=== PATIENT | female | born 1955 | race Caucasian/White ===

== ENCOUNTER → 2017-12-08 10:17 | Outpatient (CLI) | payer MEDICAID, SELFPAY ==
--- NOTE | 2017-12-08 | TISS_PTH ---
PATIENT: DIANE NINO LOC: [facility] U#:[id number] AGE/SX: 69/F ROOM: RE12/08/[address]: Dr. Laci Bernardo DO : 1955 BED: DIS: SPEC #: [id number] RECD: 12/08/17 10:06 STATUS: VIN AIRAM #: [id number] TERESE: 12/08/17 00:[address]: Laci Bernardo DEPT: SURGICAL PATHOLOGY RECD BY: Bishnu Marquez Tissues: Buttock, NOS Procedures: Surgery Specimen Level IV HEADER OPERATION: Not noted PRE-OP DIAGNOSIS: Inflamed seborrheic keratosis, L82.0 TISSUE SUBMITTED: Left buttock MICROSCOPIC DIAGNOSIS Left buttock lesion, biopsy: Inflamed pigmented verrucous keratosis with seborrheic keratosis-like features. See comment. SCARLET:rory 12/09/17 COMMENT The dermis shows numerous melanophages. The lesion is present focally at the inked deep margin of the specimen. Clinical correlation and appropriate follow up are necessary. MICROSCOPIC DESCRIPTION Slides are reviewed. GROSS DESCRIPTION Received is one container labeled with the patient's name and not further designated. The specimen consists of a piece of brownish-black skin measuring 3 x 2.5 cm and up to 0.5 cm in thickness. The specimen is inked, serially sectioned and submitted entirely in three cassettes. / SJ:rg 12/08/17 TC:5 CPT: 46874 ADDENDUM ADDENDUM ADDENDUM ADDENDUM ADDENDUM ADDENDUM ADDENDUM ADDENDUM ADDENDUM 12/16/2017 10:33 ADDENDUM 12/16/2017 10:33 ADDENDUM 12/16/2017 10:33 ADDENDUM 12/16/2017 10:33 ADDENDUM 12/16/2017 10:33 Buttock lesion, biopsy: After QC review by Dr. Fishman, the following feature is added to the lesion. The lesion is associated with severe atypia. SJ:rory 12/16/17 This case is discussed with Dr. Bernardo on 12/15/17.
== END ==
PROVIDERS: Family Provider Family Medicine; PCP Family Medicine; Referring Provider Family Medicine; Visit Provider Family Medicine
DX: L82.0 Inflamed seborrheic keratosis (principal)
CPT/HCPCS: 88305

== ENCOUNTER → 2019-01-26 12:12 | Outpatient (CLI) | payer MEDICAID, SELFPAY ==
[2019-01-26 11:35] VITALS: BMI 26.9
--- NOTE | 2019-01-26 12:14 | RAD_ITS ---
STUDY: X-RAY - LEFT FOOT CLINICAL: Female, 63 years old. Achilles tendinitis TECHNIQUE: 3 view(s) of the foot. COMPARISON: None. FINDINGS: There is an enthesophyte involving the posterior superior calcaneus at the site of insertion of the Achilles tendon. Normal visualized subtalar, talonavicular, calcaneocuboid, tarsal and tarsometatarsal articulations. Normal metatarsi. Normal metatarsophalangeal joint of the great toe. Normal tibial and fibular sesamoid bones. Normal interphalangeal joint of the great toe. Normal phalanges of the great toe. Normal second through fifth metatarsophalangeal joints. Normal interphalangeal joints and phalanges of the lesser toes. The soft tissue structures are unremarkable. There is no demonstrated fracture. RAD/Foot min 3 Views IMPRESSION: No acute fracture or dislocation. Calcified spur at the insertion of the Achilles tendon. Electronically Signed: Juan Luis Davila MD at 22:48 EST , Service support ,
== END ==
PROVIDERS: Family Provider Family Medicine; PCP Family Medicine; Referring Provider Family Medicine; Visit Provider Family Medicine
DX: M76.62 Achilles tendinitis, left leg (principal)
CPT/HCPCS: 73630

== ENCOUNTER 2019-04-21 09:30 | Outpatient (RCR) | payer MEDICAID, SELFPAY ==
[2019-01-26 11:35] VITALS: BMI 26.9
--- NOTE | 2019-03-28 07:30 | HP.PTEVAL_ITS ---
Patient's Visit Information DIANE NINO is a 63 year old F referred to Physical Therapy by Thee Fields DPM with a diagnosis of Achilles tendonitis, heel spur of L ankle/LE. Date of Evaluation: 03/23/19 Physical Therapist: Nick Henderson DPT - Visit Plan Frequency: 2x /Week Duration: 4 Weeks Plan: Start with US bharathi DN to L achilles tendon/GS complex. Add in G/S stretching both manually and standing (increase frequency x6-7 per day, decr eased load applied). Progress to eccentric stretching to increase load applied to achilles tendon. - Subjective Findings: Pt. is here today for her intiial evaluation with disgnosis of l achilies tendonitis and L heel spur. Pt. 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 Pt. reports increased pain with walking, and especially stairs. Pt. reports increased in AMs, it loosens up as day goes on, but if she is on her feet for more than a few hours. Pt. reports 2/10 pain currently. Pt. has been stretching at home ~1 per day with standing gastroc stretching, ankle ROM and manual calf stretching. Pt. reports this is helpful, but not totally relieving her symptoms. Pt. is hopeful to get back to all recreational and work activities without liimitations. - Pain L distal achillies Pain Intensity (Out of 10): 2 Pain Intensity Range: 1, 7 - Objective POSTURE: Pt. has good posture in stance, no signs of heel equinis. Pt. has normal wt. shifting between bilatearl LEs. PALPATION: Pt. has pain as distal insertion of achilles on LLE, Pt. has not G/S muscle belly pain. NEURO: normal throughout bilateral LEs. Pt. has normal sensation and normal DTR bilaterally. ROM: L ankle- PF 49deg, DF 8deg., INV- 18deg, EVR 6deg. Tightness noted with DF, mild increase in symptoms. Normal knee ROM bilaterally. MMT: 5/5 throughout bilateral ankles, 4+/5 bilateral knee strength, 4/5 bilateral hip strength throughout. Tenderness noted with PF testing. GAIT: Pt. ambulates with early heel off and reports of increased pain with preswing phase. Pt. reports increased pain with pushing off, including heel raise type movements. STAIRS: no increase in symptoms, but does have early heel off with descending wtih LLE loading phase, use of BHR. - Goals Goal 1:: LTG: pt. to be I with HEP. Goal Time Frame: 4-6 Weeks Goal 2:: STG: Pt. to have atleast 15deg of active ankle DF on L side. Goal Time Frame: 2-4 Weeks Goal 3:: LTG: pt. to ambulate unlimited distances without increase in symptoms allowing for incresed tolerance to work duties. Goal Time Frame: 4-6 Weeks Goal 4:: STG: Pt. to sleep throughout the night without increase in symptoms. Goal Time Frame: 2-4 Weeks Goal 5:: LTG: Pt. to negotiate 1 fligth of steps with 1 HR with reciprocal pattern without increase in symptoms. Goal Time Frame: 4-6 Weeks - Rehabilitation Potential Physical Therapy Diagnosis: Pt. has signs and symptoms consistent with Achilles tendonitis, heel spur of L ankle/LE. Pt. has marked ROM loss and pain with tension applied to distal achilles tendon. I would recommend that she increase her stretching of G/S complex, use of US/graston/dry to reduce symptoms and progress to eccentric loading applied to achilles tendon to increase tissue reformation allowing for increased tolerance with all loading during ADLs and gait. Rehabilitation Potential: Excellent - Anticipated Interventions Patient/Client Instruction: Educate patient on: Condition, Plan of Care, Risk Factors, Benefits of Fitness Program For the Purpose of:: To improve decision making, To facilitate caregiver knowledge, To improve self management, To prevent re-injury, To improve ability to perform tasks related to life management, To improve tolerance to ADL's Therapeutic Exercise to Include: Strength training, Power training, Endurance training, Balance training, Coordination, Postural training, Flexibilty training, Gait and locomotor training, Passive ROM, Active ROM For the Purpose of:: To decrease pain, To decrease swelling/inflammation, To increase ROM, To improve nutrient delivery to tissue, To increase oxygenation perfusion, To improve muscle performance and motor function, To improve ability to perform ADL's, To improve gait and locomotor functions, To improve health of tissue, To decrease soft tissue restriction, To increase flexibility/ROM Cryotherapy (ice pack, ice massage): Yes Thermo therapy (hot pack): Yes Ultrasound (thermal/non thermal): Yes For the Purpose of:: To decrease pain, To decrease swelling/inflammation, To increase ROM, To improve nutrient delivery to tissue, To increase oxygenation perfusion, To improve muscle performance and motor function, To improve ability to perform ADL's, To improve health of tissue, To decrease soft tissue restr iction, To increase flexibility/ROM Thank you for the opportunity to evaluate your patient. For Medicare and Medicare HMO plans, please review the plan of care and approve it. It will need to be FAXED BACK to us at [phone] for Medicare purposes. For Medicare only, by signing this I certify the plan of care. Please let me know if there are questions or concerns regarding this plan of care. Physician Signature: Date:
--- NOTE | 2019-04-21 10:36 | HP.PTDCSUM ---
HP - PT D/C Summary It has been my pleasure to treat DIANE NINO under orders from Thee Fields DPM, for the diagnosis of Achilles tendonitis, heel spur of L ankle/LE for a total of 9 visit(s). Discharge Date: Please see the following information for a summary of their discharge status. - Subjective Subjective: Pt. reports overall I am doing much better. I have some dull pain, but not that sharp pain. Pt. reports pain has been good at work. - Pain L distal achillies Pain Intensity (Out of 10): 0 - Overall Improvement % Improvement: 80 - Objective Objective/Function: L ankle ROM 16 deg of DF. Pt. reports no pain currently. Pt. is doing well at work. She does have some achiness after increased walking at work, but overall doing much better. Her gait pattern has improved and has good mechanics throughout. Pt. reports no pain with stairs this date. Pt. is pelased with porgress. I talked to her about continued stretching and eccentric strengthening. Pt. consents. Pt. will be DC from PT at this point in time. - Goals Goal 1:: LTG: pt. to be I with HEP. Goal Progress: Goal Met Goal 2:: STG: Pt. to have atleast 15deg of active ankle DF on L side. Goal Progress: Goal Met Goal 3:: LTG: pt. to ambulate unlimited distances without increase in symptoms allowing for incresed tolerance to work duties. Goal Progress: Goal Met Goal 4:: STG: Pt. to sleep throughout the night without increase in symptoms. Goal Progress: Goal Met Goal 5:: LTG: Pt. to negotiate 1 fligth of steps with 1 HR with reciprocal pattern without increase in symptoms. Goal Progress: Goal Met - Plan Plan: Pt. to be DC from PT at this point intime. - D/C Information If there are questions or concerns regarding this patient's physical therapy, please feel free to call me at [phone]. Thank you for the referral of this patient. Sincerely, Nick Henderson DPT
== END 2019-04-21 13:06 | disposition home or self-care (01) ==
LOC: PT 09:30
PROVIDERS: Family Provider Family Medicine; PCP Family Medicine; Referring Provider Podiatrist; Visit Provider Podiatrist
DX: M76.62 Achilles tendinitis, left leg (principal); M77.32 Calcaneal spur, left foot
CPT/HCPCS: 97035; 97110; 97140; 97161; 97164

== ENCOUNTER → 2019-11-16 15:28 | Outpatient (CLI) | payer MEDICAID, SELFPAY ==
[2019-11-16 15:04] VITALS: BMI 26.9
[2019-11-16 16:54] LABS: Absolute Neutrophil Count 4.8 X10^3/uL (2.0-7.7); Basophil# 0.06 X10^3/uL; Basophil% 0.7 % (0-1); Eosinophil# 0.19 X10^3/uL; Eosinophils% 2.1 % (0-5); Hematocrit 47.7 % (37-47); Hemoglobin 15.2 g/dL (12.0-15.0); Lymphocyte % 38.1 % (19-41); Mean Corp Hgb Conc 31.9 g/dL (32-36); Mean Corpuscular Hgb 29.7 pg (27.0-32.0); Mean Corpuscular Volume 93.2 fL (81-99); Mean Platelet Vol. 10.4 fl (6.2-12.0); Monocyte# 0.64 X10^3/uL; NRBC Flagged by Analyzer 0 % (0-5); Neutrophil # 4.78 X10^3/uL (2.7-7.7); Neutrophil % 51.9 % (47-70); Platelet Count 308 K/mm3 (150-450); RBC Distribution Width CV 13.6 % (11.6-14.6); RBC Distribution Width SD 47.2 fl (35.1-43.9); Red Blood Count 5.12 M/mm3 (4.2-5.4); White Blood Count 9.2 K/mm3 (4.4-11.0)
[2019-11-16 17:14] LABS: Anion Gap 4 (5-15); BUN 14 mg/dL (7-18); BUN/Creat Ratio 20.1 RATIO (10-20); Calcium,Total 9.8 mg/dL (8.5-10.1); Chloride 103 mmol/L (98-107); EST Glomerular Filtration Rate 91 mL/min (>60); Est Glom Filt Rate - Afr Amer 110 mL/min (>60); Glucose 103 mg/dL (74-106); Potassium 3.8 mmol/L (3.5-5.1); Sodium Level 140 mmol/L (136-145); Thyroid Stim Hormone (TSH) 0.69 uIU/mL (0.358-3.74)
== END ==
PROVIDERS: PCP Family Medicine; Referring Provider Family Medicine; Visit Provider Family Medicine
DX: R53.83 Other fatigue (principal)
CPT/HCPCS: 36415; 80048; 84443; 85025

== ENCOUNTER → 2020-08-02 15:30 | Outpatient (CLI) | payer MEDICAID, SELFPAY ==
[2020-07-18 14:02] VITALS: BMI 26.9
--- NOTE | 2020-08-02 15:32 | BI_ITS ---
MAMMOGRAPHY - BILATERAL SCREENING REASON FOR EXAM: Female, 65 years old. Routine annual screening examination. PERTINENT HISTORY: Non-contributory. TECHNIQUE: Digital bilateral breast tam (3D mammographic acquisition) in the CC and MLO projections. 2-D mediolateral oblique (MLO) and craniocaudad (CC) views of both breasts were obtained. CAD: Full Field Digital Mammography with Computer Added Detection was performed. COMPARISON: Comparison is made with prior study dated 09/04/2015 and 05/19/2012. FINDINGS: Breast Composition: The breasts are heterogeneously dense, which may obscure small masses. There are no dominant masses or suspicious calcifications. No other significant abnormalities are identified. There has been no significant change since the prior study. BI/SCRN MAMM (CAD)W/TAM BILAT IMPRESSION: Stable bilateral screening mammogram. Yearly follow-up mammogram recommended. (A) ASSESSMENT CATEGORY: BIRADS Category 1: Negative. A letter regarding these results will be sent to the patient by the facility within 30 days. Approximately 10% of breast cancers are not detected by mammography. A normal mammogram should not delay biopsy of a clinically suspicious abnormality. [id number] Electronically Signed: Zeferino Stone MD at 8:44 EDT , Service support ,
== END ==
PROVIDERS: PCP Family Medicine; Referring Provider Family Medicine; Visit Provider Family Medicine
DX: Z12.31 Encounter for screening mammogram for malignant neoplasm of breast (principal)
CPT/HCPCS: 77063; 77067

== ENCOUNTER → 2022-11-11 | Outpatient (CLI) | payer MEDICAID, SELFPAY ==
[2022-11-11 17:12] LABS: ALB/GLOB Ratio 0.9 RATIO (0.9-2.4); AST(SGOT) 20 U/L (15-37); Alanine Aminotransfer ALT/SGPT 19 U/L (13-56); Albumin, Serum 3.7 g/dL (3.2-5.0); Alkaline Phosphatase 85 U/L (45-117); Anion Gap 6 (5-15); BUN 10 mg/dL (7-18); BUN/Creat Ratio 14.2 RATIO (10-20); Calcium,Total 9.4 mg/dL (8.5-10.1); Chloride 102 mmol/L (98-107); EST Glomerular Filtration Rate 89 mL/min (>60); Est Glom Filt Rate - Afr Amer 108 mL/min (>60); Globulin 3.9 g/dL (2.2-4.2); Glucose 88 mg/dL (74-106); Potassium 3.9 mmol/L (3.5-5.1); Protein, Total 7.6 g/dL (6.4-8.2); Sodium Level 137 mmol/L (136-145)
== END | disposition home or self-care (01) ==
LOC: BIMLAB 15:15
PROVIDERS: PCP Family Medicine; Visit Provider Family Medicine
DX: I10 Essential (primary) hypertension (principal)
CPT/HCPCS: 36415; 80053

== ENCOUNTER → 2023-01-21 | Outpatient (CLI) | payer MEDICARE, MEDICAID, SELFPAY ==
--- NOTE | 2023-01-21 14:33 | BI_ITS ---
MAMMOGRAPHY - BILATERAL SCREENING REASON FOR EXAM: Female, 67 years old. Routine annual screening examination. PERTINENT HISTORY: Non-contributory. TECHNIQUE: Digital bilateral breast tam (3D mammographic acquisition) in the CC and MLO projections. 2-D mediolateral oblique (MLO) and craniocaudad (CC) views of both breasts were obtained. CAD: Full Field Digital Mammography with Computer Added Detection was performed. COMPARISON: Comparison is made with prior examination of August 02, 2020 and September 04, 2015. FINDINGS: Breast Composition: The breasts are heterogeneously dense, which may obscure small masses. There are no dominant masses or suspicious calcifications. No other significant abnormalities are identified. There has been no significant change since the prior study. BI/SCRN MAMM (CAD)W/TAM BILAT IMPRESSION: Stable bilateral screening mammogram. Yearly follow-up mammogram recommended. (A) ASSESSMENT CATEGORY: BIRADS Category 1: Negative. A letter regarding these results will be sent to the patient by the facility within 30 days. Approximately 10% of breast cancers are not detected by mammography. A normal mammogram should not delay biopsy of a clinically suspicious abnormality. [id number] Electronically Signed: Zeferino Stone MD at 15:20 EST ,
== END | disposition home or self-care (01) ==
PROVIDERS: PCP Family Medicine; Referring Provider Family Medicine; Visit Provider Family Medicine
DX: Z12.31 Encounter for screening mammogram for malignant neoplasm of breast (principal)
CPT/HCPCS: 77063; 77067

== ENCOUNTER → 2025-01-11 | Outpatient (CLI) | payer MEDICARE, SELFPAY ==
[2025-01-11 14:58] LABS: Hematocrit 41.7 % (37-47); Hemoglobin 13.1 g/dL (12.0-15.0); Immature Granulocytes Count 0.010 X10^3/uL (0.0-0.0); Mean Corp Hgb Conc 31.4 g/dL (32-36); Mean Corpuscular Volume 89.5 fL (81-99); Mean Platelet Vol. 11.3 fl (6.2-12.0); NRBC Flagged by Analyzer 0 % (0-5); Platelet Count 237 K/mm3 (150-450); RBC Distribution Width CV 13.2 % (11.6-14.6); RBC Distribution Width SD 43.2 fl (35.1-43.9); Red Blood Count 4.66 M/mm3 (4.2-5.4); White Blood Count 7.0 K/mm3 (4.4-11.0)
[2025-01-11 15:22] LABS: AST(SGOT) 27 U/L (<=31); Alanine Aminotransfer ALT/SGPT 16 U/L (<=34); Albumin, Serum 4.2 g/dL (3.4-4.8); Alkaline Phosphatase 64 U/L (35-104); Anion Gap 10 (5-15); BUN 15 mg/dL (4-19); BUN/Creat Ratio 19.7 RATIO (10-20); Calcium,Total 9.6 mg/dL (7.6-11.0); Carbon Dioxide 28.1 mmol/L (21.0-32.0); Chloride 104 mmol/L (98-108); Cholesterol 234 mg/dL (<=200); Globulin 3.1 g/dL (2.2-4.2); Glucose 84 mg/dL (70-99); Low Density Lipoprotein Calc. 156 mg/dL; Potassium 4.0 mmol/L (3.3-5.1); Triglycerides 140 mg/dL; Very Low Density Lipoprotein 28 mg/dL (5-40); cholesterol:hdl ratio screen 4.45
== END | disposition home or self-care (01) ==
LOC: MTLAB 11:46
PROVIDERS: PCP Family Medicine; Referring Provider Family Medicine; Visit Provider Family Medicine
DX: I10 Essential (primary) hypertension (principal)
CPT/HCPCS: 36415; 80053; 80061; 85025

== ENCOUNTER → 2025-01-31 | Outpatient (CLI) | payer MEDICARE, SELFPAY ==
--- NOTE | 2025-01-31 14:43 | BD_ITS ---
PROCEDURE: DEXA BONE DENSITY STUDY 01/31/2025 REASON FOR EXAM: OSTEOPOROSIS F, age 69 y/o . Patient is postmenopausal TECHNIQUE: Procedure Code: BDDBD Modality: DX Procedure: DEXA BONE DENSITY STUDY COMPARISON: None FINDINGS: BMD and T-SCORES Lumbar spine: 0.958 g/cm2, T-score -0.8 Levels: L1 through L4 Left femoral neck: 0.526 g/cm2, T-score -2.9 Left total hip: 0.638 g/cm2, T-score -2.5 Right femoral neck: 0.569 g/cm2, T-score -2.5 Right total hip: 0.696 g/cm2, T-score -2.0 The World Health Organization has defined the following categories based on bone density: Normal bone density: T-score equal to or greater than -1.0 Osteopenia: T-score between -1.0 and -2.5 Osteoporosis: T-score equal to or less than -2.5 FRAX (or Comparable) Fracture Risk Assessment: 10 Year Probability of Fracture: Major Osteoporotic Fracture: 39% Hip Fracture: 10% (Note: FRAX is not to be reported in setting of normal range bone density, osteoporosis on DEXA, known history of osteoporosis, prior osteoporotic hip or vertebral fracture, or for any patient undergoing pharmacological treatment for bone loss.) The National Osteoporosis Foundation (NOF) recommends pharmacological treatment for patients with a FRAX 10-year risk of 3% or higher for a hip fracture, or 20% or higher for a major osteoporotic fracture, to prevent osteoporosis and reduce fracture risk. The patient does meet the pharmacological treatment recommendations for prevention of osteoporosis. BD/Dexa Bone Density Study IMPRESSION: OSTEOPOROSIS. Recommend follow-up as clinically warranted. Reading Location: [id number]
--- OUTSIDE RECORDS SUMMARY | 2025-01-31 15:01 | XMS RPT_ITS | CCD ---
Author Organization [facility] Care Team Providers Care Manager Communication Name Role Phone Dr. Laci Bernardo Primary Care Provider Dr. Laci Bernardo Attending Provider [phone] Dr. Laci Bernardo Referring Provider [phone] Dr. Laci Bernardo DO Primary Care Physician Dr. Laci Bernardo DO Referring Provider [phone] NURSE, BIM Attending Physician Unavailable Laci Bernardo Referring Unavailable Laci Bernardo Primary Care Unavailable NURSE, BIM Attending Unavailable Laci Bernardo Attending Unavailable Az, Laci R Referring Unavailable Brown, Laci R Primary Care Unavailable Brown, Laci R Referring Unavailable Az, Laci R Primary Care Unavailable Az, Laci R Attending Unavailable Az, Laci R Referring Unavailable Az, Laci R Primary Care Unavailable Laci Bernardo Attending Unavailable Medications Current Medications Medication Drug Class(es) Dates Sig (Normalized) Sig (Original) ascorbic acid 500 mg oral capsule (5 sources) Vitamin C Start: 01-07-2023 take 1 mg by mouth once daily Start: 01-07-2023 take 1 mg by mouth once daily Ascorbic Acid (Vitamin C) Active MG PO DAILY January 06, 2023 11:00pm Start: 12-28-2018 End: 12-30-2018 take 1 mg by mouth once daily Ascorbic Acid (Vitamin C ) 500 mg capsule Discontinued mg PO DAILY 0 December 28, 2018 12:00am December 30, 2018 2:57pm Start: 12-28-2018 End: 12-30-2018 take 1 mg by mouth once daily Ascorbic Acid (Vitamin C ) Discontinued MG PO DAILY December 27, 2018 11:00pm December 30, 2018 1:57pm calcium carbonate 1500 mg oral tablet (2 sources) Start: 01-07-2023 take 1 tablet by mouth once daily cetirizine hydrochloride 10 mg oral capsule (3 sources) Histamine-1 Receptor Antagonist Start: 11-03-2017 take 1 capsule by mouth once daily ibuprofen 600 mg oral tablet (6 sources) Nonsteroidal Anti-inflammatory Drug Start: 12-28-2018 take 1 tablet by mouth three times daily at mealtime for pain Start: 12-28-2018 End: 12-30-2018 take 1 tablet by mouth every six hours Ibuprofen 200 mg tablet Discontinued 200 mg PO EVERY 6 HOURS December 28, 2018 12:00am December 30, 2018 2:57pm lysine 500 mg oral tablet (5 sources) Start: 01-07-2023 take 1 tablet by mouth once da phil Start: 12-28-2018 End: 12-30-2018 take 1 tablet by mouth once daily Lysine (L-Lysine) 500 mg tablet Discontinued 500 mg PO DAILY December 28, 2018 12:00am December 30, 2018 2:57pm Multivitamin preparation (3 sources) Start: 01-07-2023 take 1 tablet by mouth once daily Multivitamin Active 1 TABLET PO DAILY January 06, 2023 11:00pm Start: 08-26-2017 End: 12-30-2018 take 1 tablet by mouth once daily in the morning Multivitamin Discontinued 1 TABLET PO EVERY MORNING August 25, 2017 11:00pm December 30, 2018 1:57pm Start: 08-26-2017 End: 12-30-2018 take 1 tablet by mouth once daily in the morning Multivitamin Discontinued 1 TABLET PO EVERY MORNING August 26, 2017 12:00am December 30, 2018 2:57pm Multivitamin tablet (2 sources) Start: 01-07-2023 Start: 08-26-2017 End: 12-30-2018 Multivitamin tablet Disconti nued 1 {tbl} PO EVERY MORNING August 26, 2017 12:00am December 30, 2018 2:57pm varenicline 1 mg oral tablet (15 sources) Partial Cholinergic Nicotinic Agonist Start: 12-22-2022 take 1 tablet by mouth twice daily Start: 11-11-2022 take 1 tablet by mouth once Start: 07-18-2020 End: 04-01-2022 take 1 tablet by mouth once Varenicline Tartrate (Zimmerman tix Starting Month Box) 0.5 mg (11)- 1 mg (42) tablets,dose pack Discontinued 0 PO per package directions 53 0 July 18, 2020 12:00am April 01, 2022 12:21pm PO PER PKG DIR Start: 01-06-2018 End: 12-28-2018 take 1 tablet by mouth twice daily Varenicline Tartrate (Chantix) 1 mg tablet Discontinued 1 mg PO TWICE A DAY 56 3 May 05, 2018 3:06pm December 28, 2018 3:02pm Start: 11-03-2017 End: 01-06-2018 take 1 tablet by mouth once Varenicline Tartrate (Zimmerman tix Starting Month Box) 0.5 mg (11)- 1 mg (42) tablets,dose pack Discontinued 0 PO per package directions 53 November 03, 2017 12:00am January 06, 2018 2:12pm PO PER PKG DIR Varenicline (Chantix Starting Month Box) 0.5 mg (11)- 1 mg (42) tablets,dose pack (2 sources) Start: 11-11-2022 take 1 tablet by mouth once Varenicline (Chantix Starting Box) 0.5 mg (11)- 1 mg (42) tablets,dose pack Active 0 PO per package directions November 10, 2022 11:00pm PO PER PKG DIR Start: 11-11-2022 take 1 tablet by mouth once Va renicline (Chantix Starting Box) 0.5 mg (11)- 1 mg (42) tablets,dose pack Active 0 PO per package directions November 11, 2022 12:00am PO PER PKG DIR Completed/Discontinued Medications Medication Drug Class(es) Dates Sig (Normalized) Sig (Original) azithromycin 250 mg oral tablet (6 sources) Macrolide Antimicrobial Start: 12-30-2018 End: 01-26-2019 take 2-5 tablets by mouth once daily Azithromycin 250 mg tablet Discontinued 0 PO .COMPLEX 6 0 December 30, 2018 12:00am January 26, 2019 12:33pm take 500 mg today (day 1), then 250 mg for 4 days (days 2-5) PO Start: 12-30-2018 End: 01-26-2019 Azithromycin Discontinued 0 PO .COMPLEX 6 December 29, 2018 11:00pm January 26, 2019 11:33am take 500 mg today (day 1), then 250 mg for 4 days (days 2-5) PO Start: 08-26-2017 End: 11-03-2017 Azithromycin 250 mg tablet D iscontinued 0 PO .COMPLEX 6 0 August 26, 2017 12:00am November 03, 2017 9:31am Take two tablets by mouth on day one then one tablet by mouth on days 2-5 buPROPion hydrochloride 75 mg oral tablet (3 sources) Aminoketone Start: 12-10-2020 End: 03-18-2021 Bupropion Hcl 75 mg tablet Discontinued 75 mg PO THREE TIMES A DAY 90 1 December 10, 2020 12:00am March 18, 2021 1:59pm administer 6 hours apart Calcium Carbonate / vitamin D3 (3 sources) Start: 12-28-2018 End: 12-30-2018 calcium carbonate-vitamin D3 (Calcium 600 with Vitamin D3) Discontinued PO DAILY December 27, 2018 11:00pm December 30, 2018 1:57pm Start: 12-28-2018 End: 12-30-2018 calcium carbonate-vitamin D3 (Calcium 600 with Vitamin D3) Discontinued PO DAILY December 28, 2018 12:00am December 30, 2018 2:57pm 12 hr dextromethorphan hydrobromide 60 mg / guaiFENesin 1200 mg extended release oral tablet (3 sources) Uncompetitive L-vhuerz-G-aspartate Receptor Antagonist, Sigma-1 Agonist Start: 08-26-2017 End: 11-03-2017 take 60-1200 mg by mouth every twelve hours Dextromethorphan-Guaifenesin (Mucinex Dm) 60-1,200 mg tablet extended release 12 hr Discontinued 1 {tbl} PO Q12H 14 0 August 26, 2017 12:00am November 03, 2017 9:32am fluticasone propionate 0.05 mg/actuat metered dose nasal spray (6 sources) Corticosteroid Start: 12-28-2018 End: 07-18-2020 take 50 ug nasal route once daily Fluticasone Propionate (Flonase Allergy Relief) 50 mcg/actuation spray,suspension Discontinued 2 NMA INTRANASAL DAILY 15.8 1 December 28, 2018 12:00am July 18, 2020 2:02pm administer into each nostril Start: 12-28-2018 End: 07-18-2020 take 1 spray(s) nasal route once daily Fluticasone Propionate (Flonase Allergy Relief) 50 mcg/actuation spray,suspension Discontinued 2 SPRAY INTRANASAL DAILY 15.8 December 27, 2018 11:00pm July 18, 2020 1:02pm administer into each nostril Start: 08-26-2017 End: 11-03-2017 take 50 ug nasal route once daily Fluticasone Propionate (Flonase Allergy Relief) 50 mcg/actuation spray,suspension Discontinued 2 NMA INTRANASAL daily 9.9 1 August 26, 2017 12:00am November 03, 2017 9:32am administer into each nostril Start: 08-26-2017 End: 11-03-2017 take 1 spray(s) nasal route once daily Fluticasone Propionate (Flonase Allergy Relief) 50 mcg/actuation spray,suspension Discontinued 2 SPRAY INTRANASAL daily 9.9 August 25, 2017 11:00pm November 03, 2017 8:32am administer into each nostril lisinopril 5 mg oral tablet (5 sources) Angiotensin Converting Enzyme Inhibitor Start: 12-09-2022 End: 01-07-2023 take 1 tablet by mouth once daily Lisinopril 5 mg tablet Discontinued 5 mg PO DAILY 30 December 09, 2022 5:01pm January 07, 2023 1:24pm Start: 11-11-2022 End: 12-09-2022 take 1 tablet by mouth once daily Lisinopril 20 mg tablet Discontinued 20 mg PO DAILY 90 November 11, 2022 12:00am December 09, 2022 5:01pm methylPREDNISolone 4 mg oral tablet (3 sources) Corticosteroid Start: 12-30-2018 End: 01-04-2019 take 1 tablet by mouth once Methylprednisolone (Medrol (Balta)) 4 mg tablets,dose pack Discontinued 4 mg PO per package directions 21 5 0 December 30, 2018 12:00am January 03, 2019 12:00am January 04, 2019 12:07am Acute bronchitis, unspecified potassium gluconate 2.5 meq oral tablet (3 sources) Start: 12-28-2018 End: 12-30-2018 take 2.5 mEq by mouth once daily Potassium 99 mg tablet Discontinued 2.5 meq PO DAILY December 28, 2018 12:00am December 30, 2018 2:57pm Start: 12-28-2018 End: 12-30-2018 take 2.5 mEq by mouth once daily Potassium Discontinued 2.5 MEQ PO DAILY December 27, 2018 11:00pm December 30, 2018 1:57pm Problems Problem Classification Problem Date Documented Da te Episodic/Chronic Acute bronchitis (3 sources) Acute bronchitis; Translations: [Acute bronchitis, unspecified] 12-30-2018 Episodic Administrative/social admission (6 sources) Patient encounter status; Translations: [Tobacco abuse counseling] 01-06-2018 Episodic Esophageal disorders (1 source) Gastro-esophageal reflux disease without esophagitis; Translations: [Gastro-esophageal reflux disease without esophagitis] Onset: 01-10-2025 Chronic Essential hypertension (7 sources) Essential hypertension; Translations: [Essential (primary) hypertension] Onset: 01-10-2025 11-11-2022 Chronic Immunizations and screening for infectious disease (1 source) Encounter for immunization; Translations: [Encounter for immunization] Onset: 12-13-2024 Episodic Other connective tissue disease (3 sources) Ganglion cyst of left dorsal wrist; Translations: [Ganglion, left wrist] 11-16-2019 Episodic Other connective tissue disease (2 sources) Achilles tendinitis; Translations: [Achilles tendinitis, left leg] 01-26-2019 Episodic Other connective tissue disease (1 source) Left achilles tendonitis; Translations: [Achilles tendinitis, left leg] 01-26-2019 Episodic Other eye disorders (2 sources) Vitreous floaters; Translations: [Other vitreous opacities, right eye] 12-07-2017 Chronic Other eye disorders (1 source) Vitreous floaters of right eye; Translations: [Other vitreous opacities, right eye] 12-07-2017 Chronic Other screening for suspected conditions (not mental disorders or infectious disease) (1 source) Encounter for screening mammogram for malignant neoplasm of breast; Translations: [Encounter for screening mammogram for malignant neoplasm of breast] Onset: 01-11-2025 Episodic Other skin disorders (3 sources) Keratosis; Translations: [Other seborrheic keratosis] 01-06-2018 Episodic Residual codes; unclassified (1 source) Asymptomatic menopausal state; Translations: [Asymptomatic menopausal state] Onset: 01-11-2025 Episodic Spondylosis; intervertebral disc disorders; other back problems (1 source) Chronic low back pain; Translations: [Chronic low back pain] 09-08-2023 Episodic Results Test Name Value Interpretation Reference Range Facility CBC W/Diff, Automatedon 11-0 Absolute Lymph 2.61 X10 3/uL Normal 0.83-4.51 [facility] Comment on above: Performed By: #### L 500.4100, L100.0100, L500.4050 #### [facility] [address] [place], [address] Absolute Neut 3.8 X10 3/uL Normal 2.0-7.7 [facility] Comment on above: Performed By: #### L 500.4100, L100.0100, L500.4050 #### [facility] [address] [place], [address] Basophils/100 WBC (Bld) 1.1 % High 0-1 [facility] Comment on above: Performed By: #### L 500.4100, L100.0100, L500.4050 #### [facility] [address] [place], [address] Eosinophils/100 WBC (Bld) 1.8 % Normal 0-5 [facility] Comment on above: Performed By: #### L 500.4100, L100.0100, L500.4050 #### [facility] [address] [place], [address] Erythrocyte distribution width (RBC) [Ratio] 13.2 % Normal 11.6-14.6 [facility] Comment on above: Performed By: #### L 500.4100, L100.0100, L500.4050 #### [facility] [address] [place], [address] Hematocrit (Bld) [Volume fraction] 41.7 % Normal 37-47 [facility] Comment on above: Performed By: #### L 500.4100, L100.0100, L500.4050 #### [facility] [address] [place], [address] Hemoglobin (Bld) [Mass/Vol] 13.1 g/dL Normal 12.0-15.0 [facility] Comment on above: Performed By: #### L 500.4100, L100.0100, L500.4050 #### [facility] [address] [place], [address] IG% 0.100 Normal 0.0-0.9 [facility] Comment on above: Result Comment: IG% - Immature Granulocytes (promyelocytes, myelocytes and metamyelocytes) > 1% indicates that a LEFT SHIFT is Present. Performed By: #### L 500.4100, L100.0100, L500.4050 #### [facility] [address] [place], [address] Lymphocytes/100 WBC (Bld) 37.1 % Normal 19-41 [facility] Comment on above: Performed By: #### L 500.4100, L100.0100, L500.4050 #### [facility] [address] [place], [address] MCH (RBC) [Entitic mass] 28.1 pg Normal 27.0-32.0 [facility] Comment on above: Performed By: #### L 500.4100, L100.0100, L500.4050 #### [facility] [address] [place], [address] MCHC (RBC) [Mass/Vol] 31.4 g/dL Low 32-36 [facility] Comment on above: Performed By: #### L 500.4100, L100.0100, L500.4050 #### [facility] [address] [place], [address] MCV (RBC) [Entitic vol] 89.5 fL Normal 81-99 [facility] Comment on above: Performed By: #### L 500.4100, L100.0100, L500.4050 #### [facility] [address] [place], [address] Monocytes/100 WBC (Bld) 5.7 % Normal 0-10 [facility] Comment on above: Performed By: #### L 500.4100, L100.0100, L500.4050 #### [facility] [address] [place], [address] Neutrophils/100 WBC (Bld) 54.2 % Normal 47-70 [facility] Comment on above: Performed By: #### L 500.4100, L100.0100, L500.4050 #### [facility] [address] [place], [address] Nucleated RBC (Bld) [#/Vol] 0 10*3/uL Normal 0-5 [facility] Comment on above: Performed By: #### L 500.4100, L100.0100, L500.4050 #### [facility] [address] [place], [address] Platelet mean volume (Bld) [Entitic vol] 11.3 fL Normal 6.2-12.0 [facility] Comment on above: Performed By: #### L 500.4100, L100.0100, L500.4050 #### [facility] [address] [place], [address] Platelets (Bld) [#/Vol] 237 10*3/uL Normal 150-450 [facility] Comment on above: Performed By: #### L 500.4100, L100.0100, L500.4050 #### [facility] [address] [place], [address] RBC (Bld) [#/Vol] 4.66 10*6/uL Normal 4.2-5.4 [facility] Comment on above: Performed By: #### L 500.4100, L100.0100, L500.4050 #### [facility] [address] [place], [address] RDW SD 43.2 fl Normal 35.1-43.9 [facility] Comment on above: Performed By: #### L 500.4100, L100.0100, L500.4050 #### [facility] [address] [place], [address] WBC (Bld) [#/Vol] 7.0 10*3/uL Normal 4.4-11.0 [facility] Comment on above: Performed By: #### L 500.4100, L100.0100, L500.4050 #### [facility] [address] [place], [address] Comprehensive Metabolic Prof ilon 01-11-2025 Albumin [Mass/Vol] 4.2 g/dL Normal 3.4-4.8 [facility] Comment on above: Performed By: #### L 500.4100, L100.0100, L500.4050 #### [facility] [address] [place], [address] Albumin/Globulin [Mass ratio] 1.4 {ratio} Normal 0.9-2.4 [facility] Comment on above: Performed By: #### L 500.4100, L100.0100, L500.4050 #### [facility] [address] [place], [address] ALK PHOS 64 U/L Normal 35-104 [facility] Comment on above: Performed By: #### L 500.4100, L100.0100, L500.4050 #### [facility] [address] [place], [address] ALT [Catalytic activity/Vol] 16 U/L Normal <=34 [facility] Comment on above: Performed By: #### L 500.4100, L100.0100, L500.4050 #### [facility] [address] [place], [address] AST [Catalytic activity/Vol] 27 U/L Normal <=31 [facility] Comment on above: Performed By: #### L 500.4100, L100.0100, L500.4050 #### [facility] [address] [place], [address] Bilirubin [Mass/Vol] 0.26 mg/dL Normal 0.00-1.30 [facility] Comment on above: Performed By: #### L 500.4100, L100.0100, L500.4050 #### [facility] [address] [place], [address] BUN/CRE 19.7 RATIO Normal 10-20 [facility] Comment on above: Performed By: #### L 500.4100, L100.0100, L500.4050 #### [facility] [address] [place], [address] Calcium [Mass/Vol] 9.6 mg/dL Normal 7.6-11.0 [facility] Comment on above: Performed By: #### L 500.4100, L100.0100, L500.4050 #### [facility] [address] [place], [address] Chloride [Moles/Vol] 104 mmol/L Normal 98-108 [facility] Comment on above: Performed By: #### L 500.4100, L100.0100, L500.4050 #### [facility] [address] [place], [address] CO2 [Moles/Vol] 28.1 mmol/L Normal 21.0-32.0 [facility] Comment on above: Performed By: #### L 500.4100, L100.0100, L500.4050 #### [facility] [address] [place], [address] Creatinine [Mass/Vol] 0.76 mg/dL Normal 0.70-1.20 [facility] Comment on above: Performed By: #### L 500.4100, L100.0100, L500.4050 #### [facility] [address] [place], [address] GAP 10 Normal 5-15 [facility] Comment on above: Performed By: #### L 500.4100, L100.0100, L500.4050 #### [facility] [address] [place], [address] GFR/1.73 sq M.predicted among non-blacks MDRD (S/P/Bld) [Vol rate/Area] 86 mL/min/{1.73_m2} Normal >60 [facility] Comment on above: Result Comment: mL/m in/1.73m2 CKD-EPI Creatinine Equation (2020) Performed By: #### L 500.4100, L100.0100, L500.4050 #### [facility] [address] [place], [address] Globulin (S) [Mass/Vol] 3.1 g/dL Normal 2.2-4.2 [facility] Comment on above: Performed By: #### L 500.4100, L100.0100, L500.4050 #### [facility] [address] [place], [address] Glucose [Mass/Vol] 84 mg/dL Normal 70-99 [facility] Comment on above: Performed By: #### L 500.4100, L100.0100, L500.4050 #### [facility] [address] [place], [address] Potassium [Moles/Vol] 4.0 mmol/L Normal 3.3-5.1 [facility] Comment on above: Performed By: #### L 500.4100, L100.0100, L500.4050 #### [facility] [address] [place], [address] Sodium [Moles/Vol] 142 mmol/L Normal 133-145 [facility] Comment on above: Performed By: #### L 500.4100, L100.0100, L500.4050 #### [facility] [address] [place], [address] T PROT 7.2 g/dL Normal 5.9-8.4 [facility] Comment on above: Performed By: #### L 500.4100, L100.0100, L500.4050 #### [facility] [address] [place], [address] Urea nitrogen [Mass/Vol] 15 mg/dL Normal 4-19 [facility] Comment on above: Performed By: #### L 500.4100, L100.0100, L500.4050 #### [facility] [address] [place], [address] Lipid Profileon 01-11-2025 CHOL:HDL 4.45 Normal [facility] Comment on above: Performed By: #### L 500.4100, L100.0100, L500.4050 #### [facility] [address] [place], [address] Cholesterol [Mass/Vol] 234 mg/dL High <=200 [facility] Comment on above: Result Comment: Chol esterol level, Desirable <200 mg/dL Borderline high cholesterol 200-239 mg/dL High cholesterol >=240 mg/dL Recommendations of the NCEP Adult Treatment Panel for the following risk-cutoff thresholds for the [place] population. Performed By: #### L 500.4100, L100.0100, L500.4050 #### [facility] [address] [place], [address] Cholesterol in HDL [Mass/Vol] 53 mg/dL Normal [facility] Comment on above: Result Comment: [place] onal Cholesterol Education Program (NCEP) guidelines: <40 mg/dL: Low HDL-cholesterol (major risk factor for CHD) >= 60 mg/dL: High HDL-cholesterol (negative risk factor for CHD) HDL-cholesterol is affected by a number of factors, e.g. smoking, exercise, hormones, sex and age. Performed By: #### L 500.4100, L100.0100, L500.4050 #### [facility] [address] [place], [address] Cholesterol in LDL [Mass/Vol] 156 mg/dL Normal [facility] Comment on above: Result Comment: Bord wzdoxw=615-659 mg/dL Higher Lkfk=584 mg/dL or greater Jeffrey Equation 2020 for LDL-C Performed By: #### L 500.4100, L100.0100, L500.4050 #### [facility] [address] [place], [address] Cholesterol in VLDL [Mass/Vol] 28 mg/dL Normal 5-40 [facility] Comment on above: Performed By: #### L 500.4100, L100.0100, L500.4050 #### [facility] [address] [place], [address] Triglyceride [Mass/Vol] 140 mg/dL Normal [facility] Comment on above: Result Comment: The drugs N-Acetylcysteine and Metamizole may falsely depress this assay. Normal range: <150 mg/dL Borderline High: 150-199 mg/dL High: 200-499 mg/dL Very High: >500 mg/dL Performed By: #### L 500.4100, L100.0100, L500.4050 #### [facility] [address] [place], [address] Internal Medicine Office Vis shawanda 01-10-2025 Internal Medicine Office Visit [facility] Internal Medicine [address] [place] [address] [place] [address] OFFICE VISIT Date of Service: 01/10/25 MR#: [id number] Acct: [id number] Name: RAJESH NINO ET Rep #: [id number] : 1955 Provider: Dr. Laci khan DO Age/Sex: 69/F [place] [facility] Status: Signed Intake Vital Signs 09/08/23 15:26 01/10/25 12:51 Height 5 ft 4 in 5 ft 4 in Weight: 169 lb BMI 29.0 BP 144/82 H Blood Pressure Location Lt brachial Position Sitting Respiration 18 Pulse 105 H Pulse Source Monitor Temp 97.8 F Temp Source Temporal Pulse Oximetry (%) 90 Oxygen Delivery Method room air Intake Visit Reasons: WELLNESS Chief Complaint: Check up Managing Consultant Clinical Professor Required: No Accompanied by: Self Is patient in pain?: No Allergies No Known Allergies Allergy (Verified 01/10/25 12:54) Medications ???Medication ???Instructions ???Recorded ???Confirmed ???Type ibuprofen 600 mg tablet 600 mg PO TID PRN pain #30 tabs 01/10/25 Rx ascorbic acid (vitamin C) 500 mg mg PO DAILY 01/07/23 01/10/25 Hist ory capsule calcium carbonate 600 mg PO DAILY 01/07/23 01/10/25 History lysine 500 mg tablet 500 mg PO DAILY 01/07/23 01/10/25 History multivitamin 1 tab PO DAILY 01/07/23 01/10/25 H istory cetirizine 10 mg capsule (Zyrtec) 10 mg PO DAILY PRN 01/10/2501/10 History pantoprazole 40 mg tablet,delayed 40 mg PO QDAY #30 tabs 01/10/25 1 03/12/24 Rx release (Protonix) Have you fallen in the past year?: No Nurse's Note: pt reports concerns about belching that occurs daily. she feels this is increasing. [facility] Medical History (Updated 01/10/25 @ 13:[address] Laci Bernardo, ) SOB (shortness of breath) Vitreous floaters of right eye Surgical History History of detached retina repair History of right cataract surgery History of tonsillectomy Family History Mother Hypertension Heart disease Hiatal hernia Father Myocardial infarction Grandmother Diabetes Brother Diabetes Brother Multiple sclerosis Other Cancer Social History Smoking Status: Former smoker how long ago did patient quit smokin alcohol intake: current alcohol intake frequency: holidays/special occasions only substance use type: does not use what type of physical activity do you participate in: none HPI HPI Chief Complaint: Check up Details: DIANE NINO, is a 69 F who presents to the office today for gas belching and heart burn. 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 It does not seem to make any difference what food she eats she just has some heartburn and belching. Some days are much worse than others. She has no trouble with diarrhea constipation or change in the consistency of her stools. She has been contacted by her insurance company who would like her to have a bone density test and I think that is appropriate at her age. She has not had any routine blood work screening, and she has a strong family history of diabetes. ROS Const Constitutional: No body ache, chills, excessive sweating, fatigue, fever(s), frequent falls, headache(s), snoring, weight change, sleep problems, abnormal sleep pattern or change in appetite Eyes Eyes: No blurry vision, change in vision, eye pain or Light sensitivity ENT ENT: No abnormal hearing, ear or mastoid pain, tinnitus, nasal congestion, headache(s), neck pain or sore throat Resp Respiratory: No cough, shortness of breath, snoring or wheezing Cardio Cardiology: No chest pain at rest, chest pain with exertion, excessive sweating, shortness of breath, dyspnea on exertion, lightheadedness, orthopnea or palpitations Gastro GI: No abdominal pain, change in bowel habits, constipation, cramping, diarrhea, nausea/dyspepsia or vomiting Genitourinary-Fema le: No burning urination, painful urination, urinary incontinence, urinary frequency, abnormal vaginal bleeding or pelvic pain Musc Musculoskeletal: No abnormal gait, joint pain, back pain, limited range of motion, neck pain, numbness or tingling Skin Skin: No dry skin, redness, lesions, itchy eyes, rash or wounds Neuro Neurology: No abnormal gait, abnormal hearing, frequent falls, headache(s), memory loss, numbness or tingling Psych Psychiatric: No abnormal sleep pattern, No anxiety, No change in appetite, No irritability, No memory loss and No Thoughts of harming yourself/Others Endo Endocrine: No cold intolerance, excessive sweating, fatigue, flushing, heat intolerance, increased thirst/drinking, increased hunger or weight (more content not included)... Normal [facility] Basophil percentageOrdered B y: Laci Bernardo on 11-11-2022 Bilirubin [Mass/Vol] 0.50 mg/dL 0.20-1.00 [facility] Comment on above: For patients on eltr ombopag therapy, use of Dimension [place] TBIL is not recommended. Chloride [Moles/Vol] 102 mmol/L 98-107 [facility] Glucose [Mass/Vol] 88 mg/dL 74-106 [facility] Potassium [Moles/Vol] 3.9 mmol/L 3.5-5.1 [facility] Protein [Mass/Vol] 7.6 g/dL 6.4-8.2 [facility] Sodium [Moles/Vol] 137 mmol/L 136-145 [facility] Laboratory - Chemistry and C hemistry - challengeOrdered By: Laci Bernardo on 11-11-2022 ALP [Catalytic activity/Vol] 85 U/L 45-117 [facility] ALT [Catalytic activity/Vol] 19 U/L 13-56 [facility] CO2 [Moles/Vol] 29.0 mmol/L 21.0-32.0 [facility] Globulin (S) [Mass/Vol] 3.9 g/dL 2.2-4.2 [facility] Urea nitrogen/Creatinine [Mass ratio] 14.2 mg/mg 10-20 [facility] No Panel InformationOrdered By: Laci Bernardo on 11-11-2022 Estimated GFR (MDRD) Amer 108 mL/min >60 [facility] Comment on above: GFR Calc Estimated GFR (MDRD) Non-Af Amer 89 mL/min >60 [facility] Comment on above: Non- GFR Calc Serum or plasma albumin darling urement (mass/volume)Ordered By: Laci Bernardo on 11-11-2022 Albumin [Mass/Vol] 3.7 g/dL 3.2-5.0 [facility] Serum or plasma albumin/glob ulin mass ratioOrdered By: Laci Bernardo on 11-11-2022 Albumin/Globulin [Mass ratio] 0.9 {ratio} 0.9-2.4 [facility] Serum or plasma calcium darling urement (mass/volume)Ordered By: Laci Bernardo on 11-11-2022 Calcium [Mass/Vol] 9.4 mg/dL 8.5-10.1 [facility] Serum or plasma creatinine m easurement (mass/volume)Ordered By: Laci Bernardo on 11-11-2022 Creatinine [Mass/Vol] 0.70 mg/dL 0.55-1.02 [facility] Comment on above: The validity of the calculated GFR & GFRAA in patients over 70 years has not been determined. Clinical correlation is essential. Serum or plasma urea nitroge n measurement (mass/volume)Ordered By: Laci Bernardo on 11-11-2022 Urea nitrogen [Mass/Vol] 10 mg/dL 7-18 [facility] Thin prep Papanicolaou smear with manual screeningOrdered By: Laci Bernardo on 11-11-2022 Thin prep Papanicolaou smear with manual screening 20 U/L 15-37 [facility] Thin prep Papanicolaou smear with manual screening 6 5-15 [facility] Vital Signs Date Time Vital Sign Value Performing Clinician Faci lity 01-07-2023 13:26-040 Body height 162.[address] Laci Bernardo Work Phone: [facility] 01-07-2023 13:26-0400 Body mass index (BMI) [Ratio] 25.7 kg/m2 Dr. Laci Bernardo Work Phone: [facility] 01-07-2023 13:26-040 Body temperature 98.6 [degF] Dr. Laci Bernardo Work Phone: [facility] 01-07-2023 13:26-040 Body weight 68.[address] Laci Bernardo Work Phone: [facility] 01-07-2023 13:26-040 Diastolic blood pressure 90 mm[Hg] Dr. Laci Bernardo Work Phone: [facility] 01-07-2023 13:26-0400 Heart rate 89 /min Dr. Laci Bernardo Work Phone: [facility] 01-07-2023 13:26-0400 Respiratory rate 16 /min Dr. Lcai Bernrado Work Phone: [facility] 01-07-2023 13:26-0400 SaO2% (BldA) [Mass fraction] 92 % Dr. Laci Bernardo Work Phone: [facility] 01-07-2023 13:26-0400 Systolic blood pressure 142 mm[Hg] Dr. Laci Bernardo Work Phone: [facility] 11-11-2022 14:55-0400 Body height 162.[address] Laci Bernardo Work Phone: [facility] 11-11-2022 14:55-0400 Body mass index (BMI) [Ratio] 25.5 kg/m2 Dr. Laci Bernardo Work Phone: [facility] 11-11-2022 14:55-0400 Body temperature 99 [degF] Dr. Laci Bernardo Work Phone: [facility] 11-11-2022 14:55-0400 Body weight 67.[address] Laci Bernardo Work Phone: [facility] 11-11-2022 14:55-0400 Diastolic blood pressure 112 mm[Hg] Dr. Laci Bernardo Work Phone: [facility] 11-11-2022 14:55-0400 Heart rate 88 /min Dr. Laci Bernardo Work Phone: [facility] 11-11-2022 14:55-0400 Respiratory rate 16 /min Dr. Laci Bernardo Work Phone: [facility] 11-11-2022 14:55-0400 SaO2% (BldA) [Mass fraction] 92 % Dr. Laci Bernardo Work Phone: [facility] 11-11-2022 14:55-0400 Systolic blood pressure 162 mm[Hg] Dr. Laci Bernardo Work Phone: [facility] Encounters Encounter Date Encounter Type Care Provider Facility Start: 01-31-2025 ambulatory Laci Bernardo Facilit y:[facility] Start: 01-11-2025 ambulatory Laci Bernardo Facilit y:[facility] Start: 01-10-2025 Encounter for genera l adult medical examination without abnormal findings Laci Bernardo [facility] Start: 01-10-2025 End: 01-10-2025 ambulatory Laci Bernardo Facility:[facility] Start: 12-13-2024 End: 12-13-2024 Patient encounter procedure [facility] Work Phone: Start: 12-13-2024 End: 12-13-[address] Laci Bernardo DO Work Phone: [facility] Start: 01-21-2023 End: 01-21-[address] Laci Bernardo Work Phone: [facility] Work Phone: Start: 01-21-2023 End: 01-21-[address] Laci Bernardo Work Phone: [facility] Work Phone: Start: 01-07-2023 End: 01-07-[address] Laci Bernardo Work Phone: [facility] Work Phone: Start: 11-11-2022 End: 11-11-[address] Laci Bernardo Work Phone: [facility] Work Phone: Start: 11-11-2022 End: 11-11-[address] Laci Bernardo Work Phone: [facility] Work Phone: Procedures Date Procedure Procedure Detail Performing Clinician Start: 01-21-2023 Screening mammography Courtney Bernardo Work Phone: Plan of Treatment Date Care Activity Detail Author Start: 12-13-2024 [facility] Immunizations Immunization Date Immunization Notes Care Provider Fa miladysty 06-27-2020 Isabelle (Leobardo) Dr. Laci Bernardo Work Phone: [facility] 05-30-2020 Isabelle Dawson) Dr. Laci Bernardo Work Phone: [facility] Payers Date Payer Category Payer Medicare [id number] 2024 Self-pay [id number] 2024 Unknown [id number] Unknown [id number] Unknown [employer] [id number] Unknown [id number] Unknown [id number] Unknown [id number] Unknown [id number] Social History Date Type Detail Facility Start: 11-11-2022 End: 01-07-2023 Tobacco smoking status NHIS Unknown if ever smoked [facility] Start: 1955 Sex Assigned At Female [facility] Start: 09-08-2023 Tobacco smoking stat us GAIS Ex-smoker (finding) [facility] Sex Female [facility] Evaluation note Note Date & Type Note Facility Evaluation note Diagnosis Onset Date Essential hypertension acute Encounter for smoking cessation counseling chronic [facility] Work Phone: Evaluation note Note Date & Type Note Facility Evaluation note Diagnosis Onset Date Encounter for smoking cessation counseling chronic Essential hypertension resol cornell Encounter for smoking cessation counseling chronic Essential hypertension resol cornell [facility] Work Phone: Evaluation note Note Date & Type Note Facility Evaluation note No assessment information availa juan [facility] Work Phone: Reason for referral (narrative) Note Date & Type Note Facility Reason for referral (narrative) No reason for referral information available [place] [facility] Work Phone: Chief Complaint and Reason for Visit Chief Complaint ANNUAL Reason for Visit Essential hypertensi on Encounter for smoking cessation counseling Chief Complaint ANNUAL BP FOLLOW UP SCREENING Reason for Visit Encounter for smokin g cessation counseling Essential hypertension Encounter for smoking cessation counseling Essential hypertension Chief Complaint Admit Date FLU SHOT December 13, 2024 1: 02pm Family History No Family History Records Found Relationship Condition Age at Onset Recorded Date/T jack Not Specified Malignant neoplasm Unknown mother Hypertension Unknown Cardiac disease Unknown Hiatal hernia Unknown father Myocardial infarction Unknown grandmother Diabetes mellitus Unknown brother Diabetes mellitus Unknown brother Multiple sclerosis Unknown Summary Purpose Advance Directives No Advanced Directives Records Found Additional Source Comments Care Teams (unrecognized sec tion and content) Team Status: Active Member Role Status Dates Dr. Laci Bernardo , DO Family Provider Active Dr. Laci Bernardo , DO Primary Care Provider Active Team Status: Inactive Member Role Status Dates Dr. Laci Bernardo , DO Primary Care Pr ovider, Attending Provider, Referring Provider Active Team Status: Inactive Member Role Status Dates Dr. Laci Bernardo , DO Primary Care Provider, Attend ing Provider Active Team Status: Active Member Role/Relationship Status Dates Dr. Laci Bernardo , Primary care physician Active Team Status: Inactive Member Role/Relationship Status Dates Dr. Laci Bernardo , Primary care physician Active Start: December 13, 2024 End: December 13, 2024 Dr. Laci Bernardo DO Referring Provider Active Start: December 13, 2024 End: December 13, 2024 BIM NURSE Attending physician Active Start: O ct2024 End: December 13, 2024 Goals (unrecognized section and content) Goals may be documented in a n alternate sectionGoals may be documented in an alternate sectionGoals may be documented in an alternate section INFORMATION SOURCE (unrecogn ized section and content) DATE CREATED AUTHOR 01/12/2025 [facility] FOR RECORDS PERTAINING TO PATIENTS WHO ARE OR HAVE BEEN ENROLLED IN A CHEMICAL DEPENDENCY/SUBSTANCEABUSE PROGRAM, SOME INFORMATION MAY BE OMITTED. This clinical summary was aggregated from multiple sources. Caution should be exercised in using it in the provision of clinical care. This summary normalizes information from multiple sources, and as a consequence, information in this document may materially change the coding, format and clinical context of patient data. In addition, data may be omitted in some cases. CLINICAL DECISIONS SHOULD BE BASED ON THE PRIMARY CLINICAL RECORDS. [facility], [facility]. provides no warranty or guarantee of the accuracy or completeness of information in this document.
--- NOTE | 2025-01-31 15:30 | BI_ITS ---
EXAM: SCRN MAMM (CAD)W/TAM BILAT DATE: 01/31/2025 CLINICAL HISTORY: F, Age 69 y/o , SCREENING TECHNIQUE: Procedure Code: [id number] Modality: MG Procedure: SCRN MAMM (CAD)W/TAM BILAT COMPARISON: Prior exam(s) dated August 02, 2020.. FINDINGS: TISSUE DENSITY: The breasts are heterogeneously dense, which may obscure small masses. Bilateral Breast Mammographic Findings: No significant masses, calcifications or other abnormalities are identified. No suspicious masses, areas of developing architectural distortion, or suspicious calcifications. There has been no significant interval change. BI/SCRN MAMM (CAD)W/TAM BILAT IMPRESSION: Stable bilateral screening mammogram. OVERALL FINAL ASSESSMENT BI-RADS 1: NEGATIVE. RECOMMENDATION: Routine annual follow-up in 1 Year Additional Recommendation none A letter with findings and recommendations will be mailed to the patient. Reading Location: [place] [address]
== END | disposition home or self-care (01) ==
LOC: OPBI 14:40
PROVIDERS: PCP Family Medicine; Referring Provider Family Medicine; Visit Provider Family Medicine
DX: Z12.31 Encounter for screening mammogram for malignant neoplasm of breast (principal); Z78.0 Asymptomatic menopausal state
CPT/HCPCS: 77063; 77067; 77080